=== PATIENT | male | born 1985 | race African-American/Black ===

== ENCOUNTER 2018-03-29 18:02 | Emergency (ER) | payer OTHER ==
[~2018-03-29] VITALS: Ht 175.3 cm; Wt 98.0 kg
[2018-03-29 18:20] VITALS: BP 132/60
--- NOTE | 2018-03-29 18:38 | PHYS DOC ---
Past History Past Medical History: No Pertinent History Alcohol Use: None Drug Use: None Adult General Chief Complaint Chief Complaint: LACERATION/AVULSION HPI HPI 32-year-old male presents with right hand laceration. 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 It cut and ankle from proximal to distal shaving into the skin just proximal to the phalanx. He had immediate bleeding. He rinsed it out at work and put direct pressure. The bleeding was controlled. At this time he has a flap of skin overlying the area. The wound is about 4 cm long. She denies any other injuries. He states his tetanus is within the last 5 years. He does not believe there is any foreign bodies in there as the piece of steel was a large sheet. Review of Systems Review of Systems Constitutional: Denies fever or chills [] Eyes: Denies change in visual acuity, redness, or eye pain [] HENT: Denies nasal congestion or sore throat [] Respiratory: Denies cough or shortness of breath [] Cardiovascular: No additional information not addressed in HPI [] GI: Denies abdominal pain, nausea, vomiting, bloody stools or diarrhea [] : Denies dysuria or hematuria [] Musculoskeletal: Denies back pain or joint pain [] Integument: Laceration right hand[] Neurologic: Denies headache, focal weakness or sensory changes [] Endocrine: Denies polyuria or polydipsia [] All other systems were reviewed and found to be within normal limits, except as documented in this note. Physical Exam Physical Exam Constitutional: Well developed, well nourished, no acute distress, non-toxic appearance. [] HENT: Normocephalic, atraumatic, bilateral external ears normal, oropharynx moist, no oral exudates, nose normal. [] Eyes: PERRLA, EOMI, conjunctiva normal, no discharge. [] Neck: Normal range of motion, no tenderness, supple, no stridor. [] Cardiovascular:Heart rate regular rhythm, no murmur [] Lungs & Thorax: Bilateral breath sounds clear to auscultation [] Abdomen: Bowel sounds normal, soft, no tenderness, no masses, no pulsatile masses. [] Skin: 4 cm linear laceration on the palm of the right hand. No foreign body seen.[] Back: No tenderness, no CVA tenderness. [] Extremities: No tenderness, no cyanosis, no clubbing, ROM intact, no edema. [] Neurologic: Alert and oriented X 3, normal motor function, normal sensory function, no focal deficits noted. [] Psychologic: Affect normal, judgement normal, mood normal. [] Current Patient Data Vital Signs Vital Signs Date Time Temp Pulse Resp B/P (MAP) Pulse Ox O2 Delivery O2 Flow Rate FiO2 03/29/18 18:20 98.8 64 18 98 Room Air EKG EKG [] Radiology/Procedures Radiology/Procedures [] Course & Med Decision Making Course & Med Decision Making Pertinent Labs and Imaging studies reviewed. (See chart for details) Asthma during the patient's laceration is superficial and cuts through the calluses on his hand. There is a small area of about 1/2 cm where the cut is deep enough to be through muscle layers of the skin. I have advised the patient that this flap of skin is likely to and dry. He'll often at some point. I do not believe there is anything to put sutures in as they were just pull out as the skin dries. He has good bleeding control at this time. There is adequate approximation at the base of the cut. The patient was in agreement with this plan and does not wish to have sutures unless absolutely necessary. We will clean up the wound thoroughly and place a clean dressing over it. [] Dragon Disclaimer Dragon Disclaimer This electronic medical record was generated, in whole or in part, using a voice recognition dictation system. Departure Departure: Referrals: PCP,NO (PCP) VICKIE OLSEN DO Mar 29, 2018 18:38
[2018-03-29] MEDS ORDERED: NEOMY/BACITR/POLYMYXIN OINT PACKET. TP ONE (19:07)
== END 2018-03-29 19:19 | disposition home or self-care (01) ==
LOC: ER 18:02
DX: S61.411A Laceration without foreign body of right hand, initial encounter (principal); W29.8XXA Contact with other powered hand tools and household machinery, initial encounter; Y93.89 Activity, other specified; Y92.89 Other specified places as the place of occurrence of the external cause; Y99.0 Civilian activity done for income or pay
CPT/HCPCS: 99283